=== PATIENT | male | born 1940 | race Caucasian/White ===

== ENCOUNTER 2020-01-23 12:35 | Day surgery (SDC) | payer MEDICARE, OTHER, SELFPAY ==
[2020-01-22 07:49] VITALS: BMI 23.0
[2020-01-23 12:58] VITALS: BP 130/79; PULSE 86; RESP 16; TEMP 36; O2SAT 99; BMI 23.0
--- NOTE | 2020-01-23 13:57 | PM.PREOP ---
Pre-operative Note Interval Note History & Physical reviewed/Exam performed by Physician: Yes Changes to H&P: No
[2020-01-23] MEDS: CEFAZOLIN 2 GM/100 ML FROZ.PIGGY IV (14:40)
--- NOTE | 2020-01-23 15:00 | SUR.OPER ---
Lithotomy on padded OR bed, head on pillow, arms secured on padded arm boards at <90 degrees abduction. Legs secured in padded yellow fins stirrups.
[2020-01-23] MEDS: BELLADONNA/OPIUM SUPPOSITORIES 1 EACH PR (15:05)
--- NOTE | 2020-01-23 15:08 | P.OP_ITS ---
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 Post-op diagnosis: same Procedure & Clinicians Procedure: 1. Cystoscopy and dilation of recurrent membranous/bulbar urethral stricture. 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 Surgeon: Ashley Mckeon Click Yes if Unassisted: Yes Anesthesia Type: General Operative Notes Findings: 1. Urethra-penile segment normal. Distal bulbar segment normal. At junction of membranous an proximal bulbar segment there is a recurrent, short length stricture. 2. External sphincter-coapted. 3. Prostate-surgically absent. 4. Bladder-the neck is hypervascular and fixed at about 20 [place]ian. 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 No active bleeding. Ureteral orifices in normal position bilaterally. No evidence of diverticulum, bladder tumor, or stone. Closure Type: not applicable Specimen(s): none sent Applied: catheter (#18F silicone catheter.) Estimated Blood Loss (mL): 0 Blood products transfused: none Tourniquet time (min): 0 Procedure in detail: Patient was positioned supine was administered general anesthesia. He was then repositioned in semi lithotomy in the lower abdomen, groin, and genitalia were prepped and draped in sterile fashion. A 22 [place]ian panendoscope was then passed lower urinary tract with the findings as described above. With careful downward deflection of the 22 [place] panendoscope the above-described stricture was negotiated in disrupted gently period the scope was then advanced more proximally with other findings as described above. The bladder was examined in intraoperative photographs obtained. The bladder was left partially filled. The panendoscope was then removed. The 26, and the 24 [place]ian Joanna sounds were then used to dilate the lower urinary tract gently. Next, a#18F silicone Delgadillo catheter was inserted in the urethral meatus advanced proximally. The balloon was inflated to 10 cc the bladder contents were drained and the catheter was connected to gravity drainage. The patient was then repositioned supine, awakened, and transferred for to a gurney in stable condition. Complications: none Post-operative Condition: stable Disposition: PACU Plan for aftercare: Discharge home
[2020-01-23 15:21] VITALS: BP 124/73; PULSE 69; RESP 19; TEMP 36.2; O2SAT 100
[2020-01-23 15:25] VITALS: BP 130/74; PULSE 63; RESP 18; O2SAT 96
[2020-01-23 15:31] VITALS: BP 133/67; PULSE 69; RESP 20; O2SAT 98
[2020-01-23 15:39] VITALS: BP 129/72; PULSE 65; RESP 20; TEMP 36.3; O2SAT 97
[2020-01-23 15:42] VITALS: BP 125/68; PULSE 64; RESP 20; TEMP 36.2; O2SAT 99
== END 2020-01-23 16:04 | disposition home or self-care (01) ==
PROVIDERS: PCP Internal Medicine Geriatric Medicine; Referring Provider Internal Medicine Geriatric Medicine; Visit Provider Specialist
PROC: 0TBC8ZZ Excision of Bladder Neck, Via Natural or Artificial Opening Endoscopic (ICD-10-PCS; CPT 52500; principal; 2020-01-23 13:45)
DX: N32.0 Bladder-neck obstruction (principal); Z85.46 Personal history of malignant neoplasm of prostate; J45.909 Unspecified asthma, uncomplicated; I10 Essential (primary) hypertension; Z79.01 Long term (current) use of anticoagulants
CPT/HCPCS: 52344; J0690; J2250; J2405; J2704; J3010